=== PATIENT | male | born 1970 | race Caucasian/White ===

== ENCOUNTER 2017-12-13 22:12 | Emergency (ER) | payer SELFPAY ==
[~2017-12-13] VITALS: Ht 172.7 cm; Wt 102.1 kg
[~2017-12-13 22:12] MED LIST: AMARYL4 MG PO; ATOXIMETIN-B1 CAP PO; LISINOPRIL20 MG PO; METFORMIN500 MG PO; NEXIUM20 MG PO; PEN-VEE K500 MG PO; PERCOCET 325 MG1 TA2 PO
== END 2017-12-13 23:48 | disposition home or self-care (01) ==
LOC: ED 22:12
DX: S60.221A Contusion of right hand, initial encounter (principal); Z23 Encounter for immunization; Z91.040 Latex allergy status; Z79.899 Other long term (current) drug therapy; W18.39XA Other fall on same level, initial encounter; Y93.89 Activity, other specified; Y92.89 Other specified places as the place of occurrence of the external cause; Y99.8 Other external cause status

== ENCOUNTER 2019-04-29 18:55 | Emergency (ER) | payer MEDICARE ==
[~2019-04-29] VITALS: Ht 172.7 cm; Wt 97.5 kg
== END 2019-04-29 20:45 | disposition home or self-care (01) ==
LOC: ED 18:55
DX: S93.401A Sprain of unspecified ligament of right ankle, initial encounter (principal); Z79.899 Other long term (current) drug therapy; Z91.040 Latex allergy status; W17.2XXA Fall into hole, initial encounter; Y93.89 Activity, other specified; Y92.89 Other specified places as the place of occurrence of the external cause; Y99.8 Other external cause status

== ENCOUNTER 2020-06-24 17:39 | Emergency (ER) | payer MEDICARE ==
[2020-06-24] MEDS ORDERED: IBU800 MG PO (18:10)
[2020-06-24] MEDS ORDERED: CLEOCIN HCL150 MG PO (18:10)
== END 2020-06-24 18:44 | disposition home or self-care (01) ==
LOC: ED 17:39
DX: K04.7 Periapical abscess without sinus (principal); Z79.899 Other long term (current) drug therapy

== ENCOUNTER → 2020-08-22 | Outpatient (CLI) | payer MEDICARE ==
[~2020-08-22] MED LIST changes: +CLEOCIN HCL150 MG PO; +IBU800 MG PO
== END | disposition home or self-care (01) ==
LOC: COVID19 09:36
PROVIDERS: ATTEND Student in an Organized Health Care Education/Training Program
DX: U07.1 COVID-19 (principal)